=== PATIENT | female | born 1980 | race Caucasian/White ===

== ENCOUNTER 2018-12-18 17:28 | Observation (INO) | payer BC ==
[2018-12-18] MEDS ORDERED: SODIUM CHLORIDE 1,000 ML IV STA (17:34)
[2018-12-18] MEDS ORDERED: MECLIZINE HCL 25 MG TABLET (FP) PO ONE (17:34)
[2018-12-18] MEDS ORDERED: ONDANSETRON 4 MG/2 ML VIAL IVPUSH ONE (17:34)
--- NOTE | 2018-12-18 17:34 | PDOC ---
Rapid Medical Evaluation Time Seen by Provider: 12/18/18 17:31 Medical Evaluation: Allergies Allergy/AdvReac Type Severity Reaction Status Date / Time No Known Allergies Allergy Verified 07/06/11 16:38 12/18/18 17:32 I have performed a brief in-person evaluation of this patient. The patient presents with a chief complaint of: dizziness since awakening , feels as if room is spinning, no visual changes, no headache, vomited x 1, no vertigo hx Pertinent physical exam findings: cony raines, I have ordered the following: labs, ivf, urine, head ct, zofran, ivf and meclizine The patient will proceed to the ED for further evaluation. Discharge Disposition - Diagnosis Dizziness - Discharge Dispostion Disposition: HOME Condition at time of disposition: Stable - Referrals - Patient Instructions - Post Discharge Activity
--- NOTE | 2018-12-18 17:49 | PDOC ---
History of Present Illness - General Chief Complaint: Lightheaded Stated Complaint: DIZZY/VOMITTING Time Seen by Provider: 12/18/18 17:31 - History of Present Illness Initial Comments: Ms. Marshall is a 38 y/o female with no significant PMH presenting with headache that started around 8am this morning followed by dizziness, vertigo, loss of balance that started around 10am. Reports that her took her home from work. She vomited x2 at home. In the evening she began feeling lethargic, slurred speech, expressive aphasia, dysarthria, and shaking of the lower extremities. Also reports double vision. Reports that she has had similar symptoms 1 year ago, and saw an mobility scooter repairer and a neurologist, who said her findings were negative. Reports that today's symptoms are similar. NIH Stroke Scale - Last Known Well Date/Time & Onset Date Last Known Well: 12/17/18 Time Last Known Well: 23:00 - Initial Evaluation Level of consciousness: Alert Ask patient the month and their age: Answers both correctly Ask patient to open & close eyes; make fist and let go: Obeys both correctly Best gaze (horizontal eye movement): Normal Visual field testing: No visual field loss Facial paresis (Show teeth/raise eyebrows/close eyes tight): Normal symmetrical movement Motor Function: Left Arm: Normal Motor Function: Right Arm: Normal (extends arm 90 (or 45) degrees for 10 seconds without drift Motor Function: Left Leg: Drift Motor Function: Right Leg: Drift Limb Ataxia: Present in two limbs Sensory(Use pinprick test arms,legs,trunk,face/side to side): Normal Best language (Describe picture, name items, read sentences): Mild to moderate aphasia Dysarthria (read several words): Mild to moderate slurring of words Extinction and Inattention: No abnormality - Total Score NIH Stroke Scale Score: 6 Past History - Past Medical History Allergies/Adverse Reactions: Allergies Allergy/AdvReac Type Severity Reaction Status Date / Time No Known Allergies Allergy Verified 12/18/18 17:34 Home Medications: Ambulatory Orders Meclizine HCl [Antivert -] 25 mg PO TID PRN #12 tablet 12/19/18 Walker [Ultra-Light Rollator] 1 each ASDIR #1 each 12/19/18 Asthma: No Cancer: No Cardiac Disorders: No COPD: No Diabetes: No HTN: No Seizures: No Thyroid Disease: No - Psycho Social/Smoking Cessation Hx Smoking History: Never smoked Have you smoked in the past 12 months: No Information on smoking cessation initiated: No Hx Alcohol Use: No Drug/Substance Use Hx: No Hx Substance Use Treatment: No Review of Systems - Review of Systems Comments:: GENERAL/CONSTITUTIONAL: No fever or chills. Reports lethargy. HEAD, EYES, EARS, NOSE AND THROAT: Reports double vision. No change in hearing. No sore throat._ CARDIOVASCULAR: No chest pain or shortness of breath_ RESPIRATORY: Denies cough, hemoptysis_ GASTROINTESTINAL: Reports nausea and vomiting. No diarrhea or constipation._ GENITOURINARY: No dysuria, frequency, or change in urination._ MUSCULOSKELETAL: No joint or muscle swelling or pain. No neck or back pain._ SKIN: No rash_ NEUROLOGIC: Reports headache, dizziness, vertigo. Reports loss of balance. Reports dysarthria and expressive aphasia. ENDOCRINE: No increased thirst. No abnormal weight change_ HEMATOLOGIC/LYMPHATIC: No anemia, easy bleeding, or history of blood clots._ ALLERGIC/IMMUNOLOGIC: No hives or skin allergy._ *Physical Exam - Vital Signs Last Vital Signs Temp Pulse Resp BP Pulse Ox 98.4 F 80 19 135/68 98 12/18/18 17:32 12/18/18 17:32 12/18/18 17:32 12/18/18 17:32 12/18/18 17:32 - Physical Exam Comments: GENERAL: Awake, alert, and oriented to person/place/time, in no acute distress. Lethargic. HEAD: No signs of trauma, normocephalic, atraumatic _ EYES: PERRLA, EOMI, sclera anicteric, conjunctiva clear. Mild horizontal nystagmus without vertical nystagmus on lateral gaze. ENT: Hearing grossly normal, nares patent, oropharynx clear without exudates. No uvular deviation. Moist mucosa_ NECK: Normal ROM, supple, no lymphadenopathy, JVD, or masses_ LUNGS: No distress, speaks in full sentences, clear to auscultation bilaterally _ HEART: Regular rate and rhythm, normal S1 and S2, no murmurs appreciated, peripheral pulses normal and equal bilaterally._ ABDOMEN: Soft, nontender, normoactive bowel sounds. No guarding, no rebound. No masses_ EXTREMITIES: Normal inspection, Normal range of motion, no edema. No clubbing or cyanosis_ NEUROLOGICAL: CN II-XII tested and intact. Sensation intact to sharp/dull differentiation in all extremities and on face and torso. Motor: Normal tone and bulk. No abnormal movements appreciated. No pronator drift. Strength tested and 4/5 in bilateral wrist flexion/extension, elbow flexion/extension, shoulder abduction, straight leg raise, knee flexion/ extension, ankle dorsiflexion/plantarflexion. Patient ambulates with a wobbly gait. Romberg's test positive. Coordination: Intention tremor on bilateral upper extremities during finger to nose. Heal to mejia shows some effort and shaking bilaterally but otherwise intact. Speech: Expressive aphasia. Dysarthria. Emmanuel-Hallpike negative, but vertigo worse when sitting up. SKIN: Warm, Dry, normal turgor, no rashes or lesions noted. ED Treatment Course - LABORATORY CBC & Chemistry Diagram: 12/19/18 06:00 12/19/18 06:00 Medical Decision Making - Medical Decision Making 38F with no significant PMH presenting with headache, dizziness, vertigo, loss of balance, nausea/vomiting, double vision. Reports that she had similar symptoms 1 year ago and was worked up without any findings. -cbc, cmp -ua, uc, upreg -ct head -meclizine, reglan -IV fluids, IV tylenol 12/18/18 18:30 CT head negative, no signs of acute intracranial hemorrhage, no mass effect, no acute intracranial pathology. EKG shows 77 bpm, NSR, no ST elevation/depression, no axis deviation, QTc 425. 1845 Labs reviewed and wnl. UA does not show signs of UTI. Neuro consult placed to Dr. Cardona. 12/18/18 19:16 Pt reassessed after meds. Speech has improved. Shaking and tremors of extremities has improved. Reports that she continues to have dizziness. 12/18/18 19:52 D/w Dr. Cardona, who agrees with admission to r/o stroke. -MRI brain w/o contrast 12/18/18 20:55 D/w hospitalist who accepts the patient for admission. Discharge - Discharge Information Problems reviewed: Yes Clinical Impression/Diagnosis: Dizziness Condition: Stable Disposition: HOME - Follow up/Referral - Patient Discharge Instructions - Post Discharge Activity
[2018-12-18] MEDS ORDERED: MECLIZINE HCL 25 MG TABLET (FP) ONE (18:11)
[2018-12-18 18:12] LABS: PH,URINE 8.5 (5.0-8.0); URINE APPEARANCE TURBID; URINE BILIRUBIN NEGATIVE (NEGATIVE); URINE COLOR YELLOW; URINE GLUCOSE (UA) NEGATIVE (NEGATIVE); URINE KETONE NEGATIVE (NEGATIVE); URINE LEUK ESTERASE NEGATIVE (NEGATIVE); URINE NITRITE NEGATIVE (NEGATIVE); URINE PROTEIN NEGATIVE (NEGATIVE); URINE UROBILINOGEN 0.2 mg/dL (0.2-1.0)
[2018-12-18] MEDS ORDERED: ONDANSETRON 4 MG/2 ML VIAL ONE (18:12)
[2018-12-18] MEDS ORDERED: ACETAMINOPHEN 1000 MG/100 ML VIAL (NON FORMULARY) IVPB ONE (18:45)
[2018-12-18] MEDS ORDERED: METOCLOPRAMIDE HCL INJECTION 10 MG/2 ML VIAL IVPUSH ONE (18:45)
[2018-12-18 18:46] LABS: BASO % 0.9 % (0-2.0); EOS % 2.2 % (0-4.5); HEMATOCRIT 40.8 % (32.4-45.2); HEMOGLOBIN 13.8 GM/dL (10.7-15.3); LYMPH % 26.2 % (8-40); MCH 30.8 pg (25.7-33.7); MCHC 33.8 g/dl (32.0-36.0); MEAN CELL VOLUME 91.3 fl (80-96); MEAN PLT VOLUME 9.4 fl (7.5-11.1); MONO % 6.7 % (3.8-10.2); PLATELET COUNT 219 K/MM3 (134-434); RBC 4.47 M/mm3 (3.60-5.2); RDW 12.5 % (11.6-15.6); WHITE BLOOD COUNT 8.2 K/mm3 (4.0-10.0)
--- NOTE | 2018-12-18 18:51 | PDOC ---
Attending Attestation - Resident Resident Name: JonoQuinten - ED Attending Attestation I have performed the following: I have examined & evaluated the patient, The case was reviewed & discussed with the resident, I agree w/resident's findings & plan, Exceptions are as noted - HPI HPI: 12/18/18 18:45 38 F with no PMH presents to ED with double vision and dizziness. Pt states that she awoke this morning feeling like the room is spinning. She subsequently began to see double. Pt's at bedside also notes that she is slurring her words. Pt also confirms that her speech is different. Pt denies any weakness /numbness in any extremity. She endorses a R sided headache. Denies N/V. Denies F/C. Pt reports episodes of dizziness in the past. Has not been diagnosed with vertigo. - Physicial Exam PE: 12/18/18 18:51 GENERAL: Awake, alert, and fully oriented, in no acute distress. HEAD: No signs of trauma EYES: PERRLA, EOMI, sclera anicteric, conjunctiva clear ENT: Auricles normal inspection, hearing grossly normal, nares patent, oropharynx clear without exudates. Moist mucosa NECK: Nontender, no stepoffs, Normal ROM, supple, no lymphadenopathy, JVD, or masses LUNGS: Breath sounds equal, clear to auscultation bilaterally. No wheezes, and no crackles HEART: Regular rate and rhythm, normal S1 and S2, no murmurs, rubs or gallops ABDOMEN: Soft, nontender, normoactive bowel sounds. No guarding, no rebound. No masses EXTREMITIES: Normal range of motion, no edema. No clubbing or cyanosis. No cords, erythema, or tenderness NEUROLOGICAL: + horizontal bidirectional nystagmus, + dysarthria, Cranial nerves II through XII intact. 5/5 strength and sensation in all extremities, Normal speech, + mild ataxia SKIN: Warm, Dry, normal turgor, no rashes or lesions noted. - Critical Care Time Total Critical Care Time: 60 Critical Care Statement: The care of this patient involved high complexity decision making to prevent further life threatening deterioration of the patient 's condition and/or to evaluate & treat vital organ system(s) failure or risk of failure. - Medical Decision Making 12/18/18 18:52 38 F with vertigo, headache, dysarthria. ?Atypical migraine. Low suspicion for CVA, as pt with no risk factors. However, will obtain brain imaging given neuro deficits. Possible peripheral vertigo, but this would not explain pt's dysarthria. - Labs - CT head - Neuro consult - Meclizine - IVF, tylenol, reglan for migraine
[2018-12-18] MEDS ORDERED: METOCLOPRAMIDE HCL INJECTION 10 MG/2 ML VIAL ONE (18:56)
[2018-12-18] MEDS ORDERED: ACETAMINOPHEN INJECTION 100 ML IVPB ONE (18:56)
[2018-12-18 19:14] LABS: ALBUMIN 3.7 g/dl (3.4-5.0); BILIRUBIN,TOTAL 0.2 mg/dL (0.2-1); BLOOD UREA NITROGEN 7.6 mg/dL (7-18); CREATININE 0.6 mg/dL (0.55-1.3); POTASSIUM 3.9 mmol/L (3.5-5.1); TOT PROT 6.9 g/dl (6.4-8.2)
--- NOTE | 2018-12-19 00:20 | HP ---
CHIEF COMPLAINT: vertigo and dysarthria and slurred speech PCP: none HISTORY OF PRESENT ILLNESS: 38 year female with no past medical history presenting to the ED with the chief complaint of vertigo and horizontal diplopia. This morning pt felt the room spinning when she sat up on her bed and experienced double vision. She also felt nauseous in the morning and had 2 episodes of NBNB vomiting. When she went to work, her co-workers noticed that her balance and speech was slurred and that she was "tipping over" when walking. Pt describes that she was able to comprehend when spoken to but had difficulty with word finding, slurred speech and was unable to respond with coherent words. Her vertigo continued intermittently throughout the day and was provoked by changes in position. Pt reports a pressure like pain in her right sandra-orbital region. She also endorses feeling clogging in her ears but denies any tinnitus or hearing loss. Pt has one cup of coffee in the morning without any breakfast and drinks about 16 ounces of water daily. Denies fevers, chills, palpitations, chest pain, changes in medications, appetite and oral intake. Pt denies any history of migraines, flu-like symptoms, neck pain, photophobia or sonophobia, head trauma , focal neurological deficits, changes in bowel movement or urination. Pt had a similar episode September 2017. She was worked up by an color corrector and neurologist at this time with no specific findings (negative MRI). Pt reports putting pressure on her head with her hands against the wall temporarily alleviated her vertigo. Her diplopia and vertigo resolved on its own after one month duration at that time. ER course was notable for: (1) unremarkable CBC and CMP, EKG NSR, UA neg (2) Head CT negative. MRI pending report (3) meclizine, reglan,tylenol, NS. Neuro Dr Cardona consulted: rec MRI of brain w/o contrast Recent Travel:none PAST MEDICAL HISTORY: none PAST SURGICAL HISTORY: none Social History: Smoking:denies Alcohol:denies Drugs: denies Allergies No Known Allergies Allergy (Verified 12/18/18 17:34) HOME MEDICATIONS: Home Medications Medication Instructions Recorded Pnv Comb.no58/Iron Bisgly/FA 1 each PO DAILY #1 07/08/11 [ Capsule] REVIEW OF SYSTEMS CONSTITUTIONAL: Absent: fever, chills, diaphoresis, generalized weakness, malaise, loss of appetite, weight change HEENT: Absent: rhinorrhea, nasal congestion, throat pain, throat swelling, difficulty swallowing, mouth swelling, ear pain, eye pain, visual changes CARDIOVASCULAR: Absent: chest pain, syncope, palpitations, irregular heart rate, lightheadedness , peripheral edema RESPIRATORY: Absent: cough, shortness of breath, dyspnea with exertion, orthopnea, wheezing, stridor, hemoptysis GASTROINTESTINAL: Absent: abdominal pain, abdominal distension, nausea, vomiting, diarrhea, constipation, melena, hematochezia GENITOURINARY: Absent: dysuria, frequency, urgency, hesitancy, hematuria, flank pain, genital pain MUSCULOSKELETAL: Absent: myalgia, arthralgia, joint swelling, back pain, neck pain SKIN: Absent: rash, itching, pallor HEMATOLOGIC/IMMUNOLOGIC: Absent: easy bleeding, easy bruising, lymphadenopathy, frequent infections ENDOCRINE: Absent: unexplained weight gain, unexplained weight loss, heat intolerance, cold intolerance NEUROLOGIC: dizziness, unsteady gait Absent: headache, focal weakness or paresthesias, seizure, mental status changes , bladder or bowel incontinence PSYCHIATRIC: Absent: anxiety, depression, suicidal or homicidal ideation, hallucinations. PHYSICAL EXAMINATION Vital Signs - 24 hr 12/18/18 12/18/18 17:32 23:00 Temperature 98.4 F 97.9 F Pulse Rate 80 Pulse Rate [ 62 Right Radial] Respiratory 19 18 Rate Blood Pressure 135/68 Blood Pressure 131/76 [Left Arm] O2 Sat by Pulse 98 99 Oximetry (%) GENERAL: Awake, alert, and fully oriented, in mild distress. HEAD: Normal with no signs of trauma. EYES: Pupils equal, round and reactive to light, diplopia, extraocular movements intact , sclera anicteric, conjunctiva clear. No lid lag. EARS, NOSE, THROAT: oropharynx clear without exudates. Moist mucous membranes. NECK: Normal range of motion, supple without lymphadenopathy, JVD, or masses. LUNGS: Breath sounds equal, clear to auscultation bilaterally. No wheezes, and no crackles. No accessory muscle use. HEART: Regular rate and rhythm, normal S1 and S2 without murmur, rub or gallop. ABDOMEN: Soft, nontender, not distended, normoactive bowel sounds, no guarding, no rebound, no masses. No hepatomegaly or splenomegaly. MUSCULOSKELETAL: Normal range of motion at all joints. No bony deformities or tenderness. No CVA tenderness. UPPER EXTREMITIES: 2+ pulses, warm, well-perfused. No cyanosis. No clubbing. No peripheral edema. LOWER EXTREMITIES: 2+ pulses, warm, well-perfused. No calf tenderness. No peripheral edema. NEUROLOGICAL: Cranial nerves II-XII intact. Normal speech. unsteady gait. positive romberg. motor strength 5/5 in all muscle groups and sensation intact. relexes present in upper and lower extremities PSYCHIATRIC: Cooperative. Good eye contact. Appropriate mood and affect. SKIN: Warm, dry, normal turgor, no rashes or lesions noted, normal capillary refill. Laboratory Results - last 24 hr 12/18/18 12/18/18 12/18/18 17:47 17:47 18:30 WBC 8.2 RBC 4.47 Hgb 13.8 Hct 40.8 MCV 91.3 MCH 30.8 MCHC 33.8 RDW 12.5 Plt Count 219 D MPV 9.4 Absolute Neuts (auto) 5.3 Neutrophils % 64.0 Lymphocytes % 26.2 Monocytes % 6.7 Eosinophils % 2.2 Basophils % 0.9 Nucleated RBC % 0 Sodium Potassium Chloride Carbon Dioxide Anion Gap BUN Creatinine Est GFR (CKD-EPI)AfAm Est GFR (CKD-EPI)NonAf Random Glucose Calcium Total Bilirubin AST ALT Alkaline Phosphatase Total Protein Albumin Urine Color Yellow Urine Appearance Turbid Urine pH 8.5 H D Ur Specific Apollo 1.014 Urine Protein Negative Urine Glucose (UA) Negative Urine Ketones Negative Urine Blood Negative Urine Nitrite Negative Urine Bilirubin Negative Urine Urobilinogen 0.2 Ur Leukocyte Esterase Negative Urine HCG, Qual Negative 12/18/18 18:30 WBC RBC Hgb Hct MCV MCH MCHC RDW Plt Count MPV Absolute Neuts (auto) Neutrophils % Lymphocytes % Monocytes % Eosinophils % Basophils % Nucleated RBC % Sodium 139 Potassium 3.9 Chloride 106 Carbon Dioxide 27 Anion Gap 5 L BUN 7.6 Creatinine 0.6 Est GFR (CKD-EPI)AfAm 132.14 Est GFR (CKD-EPI)NonAf 114.01 Random Glucose 102 Calcium 9.0 Total Bilirubin 0.2 AST 10 L ALT 20 Alkaline Phosphatase 70 Total Protein 6.9 Albumin 3.7 Urine Color Urine Appearance Urine pH Ur Specific Apollo Urine Protein Urine Glucose (UA) Urine Ketones Urine Blood Urine Nitrite Urine Bilirubin Urine Urobilinogen Ur Leukocyte Esterase Urine HCG, Qual ASSESSMENT/PLAN: 38 year female with no past medical history presenting to the ED with the chief complaint of vertigo, horizontal diplopia, dysarthria and expressive aphasia admitted to r/o TIA Dysarthria, expressive aphasia on admission but now resolved. r/o TIA. persistent and severe vertigo Admitted to tele peripheral vertigo from BPPV? vestibulopathy ? Vestibular migraines? vs central vertigo from stoke? MS? Head CT negative MRI w/o contrast prelim report showed mucous retention cyst or polyp but otherwise unremarkable carotid U/S echocardiogram pt's has no significant PMH of HTN, Diabetes or HLD. No PCP lipid profile HbA1C ordered Though her dysarthria and expressive aphasia resolved prior to our encounter. NPO for now until speech and swallow eval keep HOB elevated at [address] Cardona consulted neuro checks fall precautions DVT SCDs Visit type - Emergency Visit Emergency Visit: Yes ED Registration Date: 12/19/18 Care time: The patient presented to the Emergency Department on the above date and was hospitalized for further evaluation of their emergent condition. - New Patient This patient is new to me today: Yes Date on this admission: 12/19/18 - Critical Care Critical Care patient: No ATTENDING PHYSICIAN STATEMENT I saw and evaluated the patient. I reviewed the resident's note and discussed the case with the resident. I agree with the resident's findings and plan as documented. SUBJECTIVE: OBJECTIVE: ASSESSMENT AND PLAN:
--- NOTE | 2018-12-19 00:50 | PN ---
Teaching Attending Note Name of Resident: Cass Pablo ATTENDING PHYSICIAN STATEMENT I saw and evaluated the patient. I reviewed the resident's note and discussed the case with the resident. I agree with the resident's findings and plan as documented. SUBJECTIVE: 38 y/o female with no significant PMH presented With a Unilateral, sharpheadache which started around 8 AM on 12/18 followed by dizziness, vertigo , loss of balance nonbloody vomiting x2. Patient also complained of some double vision. Denied any trauma to head, first time this incident has happened. Now it is much improved. OBJECTIVE: Last Vital Signs Temp Pulse Resp BP Pulse Ox 97.9 F 62 18 131/76 99 12/18/18 23:00 12/18/18 23:00 12/18/18 23:00 12/18/18 23:00 12/18/18 23:00 GENERAL: Well developed, well nourished. Awake and alert. No acute distress. HEENT: Normocephalic, atraumatic. PERRLA, EOMI. No conjunctival pallor. Sclera are non- icteric. Moist mucous membranes. Oropharynx is clear. NECK: Supple. Full ROM. No JVD. Carotid pulses 2+ and symmetric, without bruits. No thyromegaly. No lymphadenopathy. CARDIOVASCULAR: Regular rate and rhythm. No murmurs, rubs, or gallops. Distal pulses are 2+ and symmetric. PULMONARY: No evidence of respiratory distress. Lungs clear to auscultation bilaterally. No wheezing, rales or rhonchi. ABDOMINAL: Soft. Non-tender. Non-distended. No rebound or guarding. No organomegaly. Normoactive bowel sounds. MUSCULOSKELETAL Normal range of motion at all joints. No bony deformities or tenderness. No CVA tenderness. EXTREMITIES: No cyanosis. No clubbing. No edema. No calf tenderness. SKIN: Warm and dry. Normal capillary refill. No rashes. No jaundice. NEUROLOGICAL: Alert, awake, appropriate. Cranial nerves 2-12 intact. No deficits to light touch and temperature in face, upper extremities and lower extremities. No motor deficits in the in face, upper extremities and lower extremities. Normoreflexic in the upper and lower extremities. Normal speech. Toes are down- going bilaterally. Gait is normal without ataxia. PSYCHIATRIC: Cooperative. Good eye contact. Appropriate mood and affect. Abnormal Lab Results 12/18/18 12/18/18 17:47 18:30 Anion Gap 5 L AST 10 L Urine pH 8.5 H D ASSESSMENT AND PLAN: Severe headache along with nausea and vomiting worrisome for acute intracranial event. First head CT was unremarkable for any acute process.Should admit for TIA Admit to telemetry N.p.o. Speech and swallow evaluation Cardiac monitoring Neuro checks every 4 hours Neurology consult Brain MRI Bilateral carotid duplex Echo DVT prophylaxis
[2018-12-19 06:09] VITALS: BMI 36.7
[2018-12-19 07:07] LABS: EOS % 4.2 % (0-4.5); HEMATOCRIT 36.1 % (32.4-45.2); HEMOGLOBIN 12.5 GM/dL (10.7-15.3); LYMPH % 37.7 % (8-40); MCH 31.6 pg (25.7-33.7); MCHC 34.7 g/dl (32.0-36.0); MEAN CELL VOLUME 90.9 fl (80-96); MEAN PLT VOLUME 9.2 fl (7.5-11.1); MONO % 7.9 % (3.8-10.2); NEUT % 49.2 % (42.8-82.8); PLATELET COUNT 207 K/MM3 (134-434); RBC 3.97 M/mm3 (3.60-5.2); RDW 12.7 % (11.6-15.6); WHITE BLOOD COUNT 6.1 K/mm3 (4.0-10.0)
[2018-12-19 08:05] LABS: ALBUMIN 3.2 g/dl (3.4-5.0); BILIRUBIN,TOTAL 0.5 mg/dL (0.2-1); BLOOD UREA NITROGEN 7.5 mg/dL (7-18); CALCIUM 8.2 mg/dL (8.5-10.1); CREATININE 0.5 mg/dL (0.55-1.3); PHOSPHOROUS 3.7 mg/dL (2.5-4.9); POTASSIUM 3.6 mmol/L (3.5-5.1); TOT PROT 6.2 g/dl (6.4-8.2)
--- NOTE | 2018-12-19 09:27 | CONSULT ---
Consult - text type - Consultation Consultation Note: Neurology CHIEF COMPLAINT: vertigo and dysarthria and slurred speech PCP: none HISTORY OF PRESENT ILLNESS: 38 year female with no past medical history presented to the ED with the chief complaint of vertigo and horizontal diplopia. The morning of admission, pt felt the room spinning when she sat up on her bed and experienced double vision. She also felt nauseous in the morning and had 2 episodes of NBNB vomiting. When she went to work, her co-workers noticed that her balance and speech was slurred and that she was "tipping over" when walking. Pt describes that she was able to comprehend when spoken to but had difficulty with word finding, slurred speech and was unable to respond with coherent words. Her vertigo continued intermittently throughout the day and was provoked by changes in position. Pt reports a pressure like pain in her right sandra-orbital region. She also endorses feeling clogging in her ears but denies any tinnitus or hearing loss. Pt has one cup of coffee in the morning without any breakfast and drinks about 16 ounces of water daily. Denies fevers, chills, palpitations, chest pain, changes in medications, appetite and oral intake. Pt denies any history of migraines, flu-like symptoms, neck pain, photophobia or sonophobia, head trauma , focal neurological deficits, changes in bowel movement or urination. Pt had a similar episode September 2017. She was worked up by an supervisor dumping and neurologist at this time with no specific findings (negative MRI). Pt reports putting pressure on her head with her hands against the wall temporarily alleviated her vertigo. Her diplopia and vertigo resolved on its own after one month duration at that time. I was contacted by the emergency department regarding the case. nnoncontrast head CT did not show any acute changes. Given her symptoms and possible posterior circulation lesion, advised to have MRI of the brain completed. This was completed overnight and demonstrated no significant structural abnormalities. This morning, patient reports symptoms are significantly better and was having echo completed during my visit. She denies having any focal deficits and neurologically appears to be at baseline. Recent Travel:none PAST MEDICAL HISTORY: none PAST SURGICAL HISTORY: none Social History: Smoking:denies Alcohol:denies Drugs: denies Family: HTN Allergies No Known Allergies Allergy (Verified 12/18/18 17:34) HOME MEDICATIONS: Home Medications Medication Instructions Recorded Pnv Comb.no58/Iron Bisgly/FA 1 each PO DAILY #1 07/08/11 [ Capsule] REVIEW OF SYSTEMS CONSTITUTIONAL: Absent: fever, chills, diaphoresis, generalized weakness, malaise, loss of appetite, weight change HEENT: Absent: rhinorrhea, nasal congestion, throat pain, throat swelling, difficulty swallowing, mouth swelling, ear pain, eye pain, visual changes CARDIOVASCULAR: Absent: chest pain, syncope, palpitations, irregular heart rate, lightheadedness , peripheral edema RESPIRATORY: Absent: cough, shortness of breath, dyspnea with exertion, orthopnea, wheezing, stridor, hemoptysis GASTROINTESTINAL: Absent: abdominal pain, abdominal distension, nausea, vomiting, diarrhea, constipation, melena, hematochezia GENITOURINARY: Absent: dysuria, frequency, urgency, hesitancy, hematuria, flank pain, genital pain MUSCULOSKELETAL: Absent: myalgia, arthralgia, joint swelling, back pain, neck pain SKIN: Absent: rash, itching, pallor HEMATOLOGIC/IMMUNOLOGIC: Absent: easy bleeding, easy bruising, lymphadenopathy, frequent infections ENDOCRINE: Absent: unexplained weight gain, unexplained weight loss, heat intolerance, cold intolerance NEUROLOGIC: dizziness, unsteady gait Absent: headache, focal weakness or paresthesias, seizure, mental status changes , bladder or bowel incontinence PSYCHIATRIC: Absent: anxiety, depression, suicidal or homicidal ideation, hallucinations. PHYSICAL EXAMINATION Vital Signs Period Temp Pulse Resp BP Sys/Sy Pulse Ox Last 24 Hr 97.9 F-98.4 F 60-80 16-19 116-135/68-80 98-99 GENERAL: Awake, alert, and fully oriented, in mild distress. HEAD: Normal with no signs of trauma. EYES: Pupils equal, round and reactive to light, diplopia, extraocular movements intact , sclera anicteric, conjunctiva clear. No lid lag. EARS, NOSE, THROAT: oropharynx clear without exudates. Moist mucous membranes. NECK: Normal range of motion, supple without lymphadenopathy, JVD, or masses. LUNGS: Breath sounds equal, clear to auscultation bilaterally. No wheezes, and no crackles. No accessory muscle use. HEART: Regular rate and rhythm, normal S1 and S2 without murmur, rub or gallop. ABDOMEN: Soft, nontender, not distended, normoactive bowel sounds, no guarding, no rebound, no masses. No hepatomegaly or splenomegaly. MUSCULOSKELETAL: Normal range of motion at all joints. No bony deformities or tenderness. No CVA tenderness. UPPER EXTREMITIES: 2+ pulses, warm, well-perfused. No cyanosis. No clubbing. No peripheral edema. LOWER EXTREMITIES: 2+ pulses, warm, well-perfused. No calf tenderness. No peripheral edema. NEUROLOGICAL: Cranial nerves II-XII intact. Normal speech. motor strength 5/5 in all muscle groups and sensation intact. reflexes present in upper and lower extremities, sensory intact PSYCHIATRIC: Cooperative. Good eye contact. Appropriate mood and affect. SKIN: Warm, dry, normal turgor, no rashes or lesions noted, normal capillary refill. Laboratory Results - last 24 hr 12/18/18 12/18/18 12/18/18 17:47 17:47 18:30 WBC 8.2 RBC 4.47 Hgb 13.8 Hct 40.8 MCV 91.3 MCH 30.8 MCHC 33.8 RDW 12.5 Plt Count 219 D MPV 9.4 Absolute Neuts (auto) 5.3 Neutrophils % 64.0 Lymphocytes % 26.2 Monocytes % 6.7 Eosinophils % 2.2 Basophils % 0.9 Nucleated RBC % 0 Sodium Potassium Chloride Carbon Dioxide Anion Gap BUN Creatinine Est GFR (CKD-EPI)AfAm Est GFR (CKD-EPI)NonAf Random Glucose Calcium Total Bilirubin AST ALT Alkaline Phosphatase Total Protein Albumin Urine Color Yellow Urine Appearance Turbid Urine pH 8.5 H D Ur Specific [place] 1.014 Urine Protein Negative Urine Glucose (UA) Negative Urine Ketones Negative Urine Blood Negative Urine Nitrite Negative Urine Bilirubin Negative Urine Urobilinogen 0.2 Ur Leukocyte Esterase Negative Urine HCG, Qual Negative 12/18/18 18:30 WBC RBC Hgb Hct MCV MCH MCHC RDW Plt Count MPV Absolute Neuts (auto) Neutrophils % Lymphocytes % Monocytes % Eosinophils % Basophils % Nucleated RBC % Sodium 139 Potassium 3.9 Chloride 106 Carbon Dioxide 27 Anion Gap 5 L BUN 7.6 Creatinine 0.6 Est GFR (CKD-EPI)AfAm 132.14 Est GFR (CKD-EPI)NonAf 114.01 Random Glucose 102 Calcium 9.0 Total Bilirubin 0.2 AST 10 L ALT 20 Alkaline Phosphatase 70 Total Protein 6.9 Albumin 3.7 Urine Color Urine Appearance Urine pH Ur Specific [place] Urine Protein Urine Glucose (UA) Urine Ketones Urine Blood Urine Nitrite Urine Bilirubin Urine Urobilinogen Ur Leukocyte Esterase Urine HCG, Qual ASSESSMENT/PLAN: 38 year female with no past medical history presented to the ED with the chief complaint of vertigo and horizontal diplopia. The morning of admission, pt felt the room spinning when she sat up on her bed and experienced double vision. She also felt nauseous in the morning and had 2 episodes of NBNB vomiting. When she went to work, her co-workers noticed that her balance and speech was slurred and that she was "tipping over" when walking. Pt describes that she was able to comprehend when spoken to but had difficulty with word finding, slurred speech and was unable to respond with coherent words. Her vertigo continued intermittently throughout the day and was provoked by changes in position. Pt reports a pressure like pain in her right sandra-orbital region. She also endorses feeling clogging in her ears but denies any tinnitus or hearing loss. Pt has one cup of coffee in the morning without any breakfast and drinks about 16 ounces of water daily. Denies fevers, chills, palpitations, chest pain, changes in medications, appetite and oral intake. Pt denies any history of migraines, flu-like symptoms, neck pain, photophobia or sonophobia, head trauma , focal neurological deficits, changes in bowel movement or urination. Pt had a similar episode September 2017. She was worked up by an supervisor dumping and neurologist at this time with no specific findings (negative MRI). Pt reports putting pressure on her head with her hands against the wall temporarily alleviated her vertigo. Her diplopia and vertigo resolved on its own after one month duration at that time. I was contacted by the emergency department regarding the case. nnoncontrast head CT did not show any acute changes. Given her symptoms and possible posterior circulation lesion, advised to have MRI of the brain completed. This was completed overnight and demonstrated no significant structural abnormalities and was within normal limits. This morning, patient reports symptoms are significantly better and was having echo completed during my visit. She denies having any focal deficits and neurologically appears to be at baseline. Follow-up reports of echo, carotid Dopplers. adequate hydration recommended, consider meclizineas needed for outpatient management. Jon maneuvers may be of benefit.
--- NOTE | 2018-12-19 09:59 | CONSULT ---
Admitting History and Physical - Primary Care Physician PCP: Del Cavazos - Admission History of Present Illness: 38 y/o female with no significant PMH presented With sharp headache followed by dizziness, vertigo, loss of balance vomiting x2, double vision, difficulty initiating speech. Selected Entries 12/19/18 12/19/18 12/19/18 03:43 05:46 11:16 Breakfast NPO Temperature 98.2 F 98.2 F Laboratory Tests 12/19/18 06:00 WBC 6.1 History Source: Patient Limitations to Obtaining History: No Limitations - Past Medical History ...: No (urine HCG neg) - Past Surgical History Past Surgical History: Yes: None - Smoking History Smoking history: Never smoked Have you smoked in the past 12 months: No - Alcohol/Substance Use Hx Alcohol Use: No History of Substance Use: reports: None - Social History History of Recent Travel: No History - Admission Reason For Visit: DIZZINESS - Diagnostics X-ray: Report Reviewed CT Scan: Report Reviewed MRI: Report Reviewed - General Mental Status: Alert and Oriented, Awake and Alert, Able to Follow Commands Attention: Intact Ability to Follow Directions: Excellent Head/Neck Control: WFL - Hearing Hearing: Normal Hearing: Normal Speech Evaluation - Communication Primary Language: JORDANIAN Communication: Yes: Within Normal Limits Oral Expression Ability: Yes: No Impairment - Speech Production Able to Make Needs Known: Yes: WNL Intelligibility: Yes: WNL - Speech Characteristics Voice Loudness: Normal Voice Pitch: Yes: Normal Voice Phonatory-based Quality: Yes: Normal Speech Pattern: Normal Speech Clarity: < 100% Nasal Resonance: Normal Articulation: Yes: Precise Rate of Speech: Intact - Language/Auditory Comprehension Follows: Yes: 2 Stage Simple Commands Observation: Able to respond to yes/no queries: Yes, Yes/No Confusion: No, Comprehends Conversational Speech: Yes - Language/Verbal Expression Able to Respond to Simple Queries: Yes: WNL Able to Communicate Wants and Needs: Yes: WNL Functional Communication Status: Yes: WNL - Memory/Perception terminologist Memory: Yes: WNL Short Term Memory: Yes: WNL - Swallow Evaluation/Bedside Assessment Current Nutritional Intake: NPO Oral Secretions: Yes: WFL Dentition: Yes: Adequate Facial Symmetry at Rest: Symmetrical Facial Symmetry on Retraction: Symmetrical Facial Movement: Controlled Sensation: Normal Against Resistance Opening: Normal Against Resistance Closing: Normal Pucker Lips: Normal Smile: Normal Lingual Movement: Normal, Symmetric Lingual Speed of Movement: Normal Lingual Movement Strgth Against Opposition: Normal Lingual Movement Characteristics: Normal Velopharyngeal Movement: Normal Laryngeal Elevation: WFL Laryngeal Movement: Able to Palpate Rate of Intake: WFL Bolus Size: WFL Labial Seal: WFL Chewing: WFL Oral Prep Time: WFL A-P Transit: WFL Timing of Swallow: WFL Coughing/Throat Clear: No Change in Voice: No Recommendations - Speech Evaluation, Impression/Plan Impression: Speech, swallowing, language, cognition intact at this time. - Dysphagia Impressions/Plan Swallowing Skills: WF Dysphagia Impressions: No Impairment *Silent aspiration: cannot be R/O at bedside - Recommendations Diet Consistency: Regular Medication Administration: Whole with water Liquids: Thin Liquids
[2018-12-19] MEDS ORDERED: ACETAMINOPHEN 325 MG TABLET (FP) PO PRN (12:21)
--- NOTE | 2018-12-19 12:39 | EKG ---
Test Reason : Blood Pressure : / mmHG Vent. Rate : 077 BPM Atrial Rate : 077 BPM P-R Int : 150 ms QRS Dur : 086 ms QT Int : 376 ms P-R-T Axes : 037 050 030 degrees QTc Int : 425 ms NORMAL SINUS RHYTHM NORMAL ECG NO PREVIOUS ECGS AVAILABLE Confirmed by KENNEDY CARMICHAEL MD ([id number]) on 12/19/2018 12:39:32 PM Referred By: Confirmed By:KENNEDY CARMICHAEL MD
--- NOTE | 2018-12-19 12:50 | ECHO ---
Name: SANTIAGO CORDOVA Z Exam:Adult Echocardiogram Study Date: 12/19/2018 08:34 AM Age: 38 yrs Height: 59 in Weight: 182 lb BSA: 1.8 m2 MMode/2D Measurements & Calculations IVSd: 1.0 cm Ao root diam: 2.2 cm LVIDd: 3.4 cm LA dimension: 3.0 cm LVIDs: 2.3 cm LVPWd: 0.90 cm LVPWs: 1.2 cm EDV(Teich): 47.4 ml ESV(Teich): 18.1 ml LVOT diam: 1.7 cm Doppler Measurements & Calculations MV E max arnaldo: 88.8 cm/sec Ao V2 max: 137.1 cm/sec MV A max arnaldo: 70.6 cm/sec Ao max P.5 mmHg MV E/A: 1.3 MV dec time: 0.14 sec BERENICE(V,D): 1.6 cm2 LV V1 max P.9 mmHg TR max arnaldo: 222.3 cm/sec LV V1 max: 99.2 cm/sec TR max P.8 mmHg PA V2 max: 107.2 cm/sec Med Peak E' Arnaldo: 10.4 cm/sec PA max P.6 mmHg Med E/e': 8.5 Lat Peak E' Arnaldo: 11.4 cm/sec Lat E/e': 7.8 Procedure A complete two-dimensional transthoracic echocardiogram was performed (2D, M-mode, Doppler and color flow Doppler). Left Ventricle The left ventricular size, thickness and function are normal. The left ventricular ejection fraction is normal. Ejection Fraction = 55-60%. The left ventricular wall motion is normal. Right Ventricle The right ventricle is normal in size and function. Atria Normal left and right atrial size and function. Mitral Valve There is no mitral regurgitation noted. Tricuspid Valve There is mild tricuspid regurgitation. Right ventricular systolic pressure is normal. Aortic Valve No hemodynamically significant valvular aortic stenosis. No aortic regurgitation is present. Pulmonic Valve There is no pulmonic valvular regurgitation. Great Vessels The aortic root is normal size. Pericardium/Pleura There is no pericardial effusion. Interpretation Summary The left ventricular size, thickness and function are normal The right ventricle is normal in size and function. There is mild tricuspid regurgitation. MD Mark Hall 12/19/2018 12:50 PM
--- NOTE | 2018-12-19 14:32 | PN ---
Teaching Attending Note Name of Resident: Piyush Welsh ATTENDING PHYSICIAN STATEMENT I saw and evaluated the patient. I reviewed the resident's note and discussed the case with the resident. I agree with the resident's findings and plan as documented with exceptions below. SUBJECTIVE: Patient seen and examined, no further symptoms, no vision disturbances or dizziness currently. OBJECTIVE: Vital Signs Period Temp Pulse Resp BP Sys/Sy Pulse Ox Last 24 Hr 97.9 F-98.4 F 60-85 16-19 116-135/68-80 98-99 Intake & Output 12/16/18 12/17/18 12/18/18 12/19/18 23:59 23:59 23:59 23:59 Intake Total 1370 Balance 1370 Weight 185 lb 182 lb General: sitting in bed in no acute distress Neck: soft, supple HEENT: PERRL, EOMI, no nystagmus Chest: CTAB, no rales or wheezing Abdomen:soft, obese, NT neuro: AAOx3, power 5/5, sensation intact and symmetric to light touch, EOMI, PERRL, DTR symmetric, tongue midline, facial symmetry, no dysdiadokinesia Home Medications Medication Instructions Recorded Pnv Comb.no58/Iron Bisgly/FA 1 each PO DAILY #1 07/08/11 [ Capsule] Active Medications Acetaminophen (Tylenol -) 650 mg PO Q6H PRN PRN Reason: Fever Or Pain Laboratory Results - last 24 hr 12/18/18 12/18/18 12/18/18 17:47 17:47 18:30 WBC 8.2 RBC 4.47 Hgb 13.8 Hct 40.8 MCV 91.3 MCH 30.8 MCHC 33.8 RDW 12.5 Plt Count 219 D MPV 9.4 Absolute Neuts (auto) 5.3 Neutrophils % 64.0 Lymphocytes % 26.2 Monocytes % 6.7 Eosinophils % 2.2 Basophils % 0.9 Nucleated RBC % 0 Sodium Potassium Chloride Carbon Dioxide Anion Gap BUN Creatinine Est GFR (CKD-EPI)AfAm Est GFR (CKD-EPI)NonAf Random Glucose Hemoglobin A1c % Calcium Phosphorus Magnesium Total Bilirubin AST ALT Alkaline Phosphatase Total Protein Albumin Triglycerides Cholesterol Total LDL Cholesterol HDL Cholesterol Urine Color Yellow Urine Appearance Turbid Urine pH 8.5 H D Ur Specific [place] 1.014 Urine Protein Negative Urine Glucose (UA) Negative Urine Ketones Negative Urine Blood Negative Urine Nitrite Negative Urine Bilirubin Negative Urine Urobilinogen 0.2 Ur Leukocyte Esterase Negative Urine HCG, Qual Negative 12/18/18 12/19/18 12/19/18 18:30 06:00 06:00 WBC 6.1 RBC 3.97 Hgb 12.5 Hct 36.1 MCV 90.9 MCH 31.6 MCHC 34.7 RDW 12.7 Plt Count 207 MPV 9.2 Absolute Neuts (auto) 3.0 Neutrophils % 49.2 D Lymphocytes % 37.7 D Monocytes % 7.9 Eosinophils % 4.2 D Basophils % 1.0 Nucleated RBC % 0 Sodium 139 140 Potassium 3.9 3.6 Chloride 106 108 H Carbon Dioxide 27 27 Anion Gap 5 L 5 L BUN 7.6 7.5 Creatinine 0.6 0.5 L Est GFR (CKD-EPI)AfAm 132.14 140.31 Est GFR (CKD-EPI)NonAf 114.01 121.06 Random Glucose 102 89 Hemoglobin A1c % Calcium 9.0 8.2 L Phosphorus 3.7 Magnesium 2.0 Total Bilirubin 0.2 0.5 AST 10 L 12 L ALT 20 17 Alkaline Phosphatase 70 61 Total Protein 6.9 6.2 L Albumin 3.7 3.2 L Triglycerides 273 H Cholesterol 163 Total LDL Cholesterol 102 H HDL Cholesterol 34 L Urine Color Urine Appearance Urine pH Ur Specific [place] Urine Protein Urine Glucose (UA) Urine Ketones Urine Blood Urine Nitrite Urine Bilirubin Urine Urobilinogen Ur Leukocyte Esterase Urine HCG, Qual 12/19/18 06:00 WBC RBC Hgb Hct MCV MCH MCHC RDW Plt Count MPV Absolute Neuts (auto) Neutrophils % Lymphocytes % Monocytes % Eosinophils % Basophils % Nucleated RBC % Sodium Potassium Chloride Carbon Dioxide Anion Gap BUN Creatinine Est GFR (CKD-EPI)AfAm Est GFR (CKD-EPI)NonAf Random Glucose Hemoglobin A1c % 4.8 Calcium Phosphorus Magnesium Total Bilirubin AST ALT Alkaline Phosphatase Total Protein Albumin Triglycerides Cholesterol Total LDL Cholesterol HDL Cholesterol Urine Color Urine Appearance Urine pH Ur Specific [place] Urine Protein Urine Glucose (UA) Urine Ketones Urine Blood Urine Nitrite Urine Bilirubin Urine Urobilinogen Ur Leukocyte Esterase Urine HCG, Qual MRI brain results reviewed 2D echo noted ASSESSMENT AND PLAN: 38 yof with no significant PMHx admitted with diplopia/dizziness -Dizziness, suspect BPPV -Diploplia, resolved -Obesity -Dyslipidemia Plan: MRI/2Decho non concerning Symptoms resolved, neurological exam non focal Neurology input noted Await carotid duplex Dc home today if no concerns Discussed with patient and nursing.
--- NOTE | 2018-12-19 18:03 | DS ---
Physical Exam: SUBJECTIVE: Patient seen and examined OBJECTIVE: Vital Signs Period Temp Pulse Resp BP Sys/Sy Pulse Ox Last 24 Hr 97.9 F-98.2 F 60-85 16-18 116-132/69-80 98-99 PHYSICAL EXAM GENERAL: A&O x3. NAD. Large body habitus HEAD: NC/AT. No temporal wasting EYES: EOMI, sclera anicteric, conjunctiva clear. ENT: Ears normal, nares patent, oropharynx clear without exudates, moist mucous membranes. NECK: Trachea midline, full range of motion, supple. LUNGS: Breath sounds equal, clear to auscultation bilaterally, no wheezes, no crackles, no accessory muscle use. HEART: Regular rate and rhythm, S1, S2 without murmur, rub or gallop. ABDOMEN: Soft, nontender, nondistended, normoactive bowel sounds, no guarding, no rebound. EXTREMITIES: 2+ pulses, warm, well-perfused, no edema. NEUROLOGICAL: Cranial nerves II through XII grossly intact. NIHSS 0. Normal speech, gait not observed. PSYCH: Normal mood, normal affect. SKIN: Warm, dry, normal turgor, no rashes or lesions noted. LABS Laboratory Results - last 24 hr 12/18/18 12/18/18 12/18/18 17:47 17:47 18:30 WBC 8.2 RBC 4.47 Hgb 13.8 Hct 40.8 MCV 91.3 MCH 30.8 MCHC 33.8 RDW 12.5 Plt Count 219 D MPV 9.4 Absolute Neuts (auto) 5.3 Neutrophils % 64.0 Lymphocytes % 26.2 Monocytes % 6.7 Eosinophils % 2.2 Basophils % 0.9 Nucleated RBC % 0 Sodium Potassium Chloride Carbon Dioxide Anion Gap BUN Creatinine Est GFR (CKD-EPI)AfAm Est GFR (CKD-EPI)NonAf Random Glucose Hemoglobin A1c % Calcium Phosphorus Magnesium Total Bilirubin AST ALT Alkaline Phosphatase Total Protein Albumin Triglycerides Cholesterol Total LDL Cholesterol HDL Cholesterol Urine Color Yellow Urine Appearance Turbid Urine pH 8.5 H D Ur Specific [place] 1.014 Urine Protein Negative Urine Glucose (UA) Negative Urine Ketones Negative Urine Blood Negative Urine Nitrite Negative Urine Bilirubin Negative Urine Urobilinogen 0.2 Ur Leukocyte Esterase Negative Urine HCG, Qual Negative 12/18/18 12/19/18 12/19/18 18:30 06:00 06:00 WBC 6.1 RBC 3.97 Hgb 12.5 Hct 36.1 MCV 90.9 MCH 31.6 MCHC 34.7 RDW 12.7 Plt Count 207 MPV 9.2 Absolute Neuts (auto) 3.0 Neutrophils % 49.2 D Lymphocytes % 37.7 D Monocytes % 7.9 Eosinophils % 4.2 D Basophils % 1.0 Nucleated RBC % 0 Sodium 139 140 Potassium 3.9 3.6 Chloride 106 108 H Carbon Dioxide 27 27 Anion Gap 5 L 5 L BUN 7.6 7.5 Creatinine 0.6 0.5 L Est GFR (CKD-EPI)AfAm 132.14 140.31 Est GFR (CKD-EPI)NonAf 114.01 121.06 Random Glucose 102 89 Hemoglobin A1c % Calcium 9.0 8.2 L Phosphorus 3.7 Magnesium 2.0 Total Bilirubin 0.2 0.5 AST 10 L 12 L ALT 20 17 Alkaline Phosphatase 70 61 Total Protein 6.9 6.2 L Albumin 3.7 3.2 L Triglycerides 273 H Cholesterol 163 Total LDL Cholesterol 102 H HDL Cholesterol 34 L Urine Color Urine Appearance Urine pH Ur Specific [place] Urine Protein Urine Glucose (UA) Urine Ketones Urine Blood Urine Nitrite Urine Bilirubin Urine Urobilinogen Ur Leukocyte Esterase Urine HCG, Qual 12/19/18 06:00 WBC RBC Hgb Hct MCV MCH MCHC RDW Plt Count MPV Absolute Neuts (auto) Neutrophils % Lymphocytes % Monocytes % Eosinophils % Basophils % Nucleated RBC % Sodium Potassium Chloride Carbon Dioxide Anion Gap BUN Creatinine Est GFR (CKD-EPI)AfAm Est GFR (CKD-EPI)NonAf Random Glucose Hemoglobin A1c % 4.8 Calcium Phosphorus Magnesium Total Bilirubin AST ALT Alkaline Phosphatase Total Protein Albumin Triglycerides Cholesterol Total LDL Cholesterol HDL Cholesterol Urine Color Urine Appearance Urine pH Ur Specific [place] Urine Protein Urine Glucose (UA) Urine Ketones Urine Blood Urine Nitrite Urine Bilirubin Urine Urobilinogen Ur Leukocyte Esterase Urine HCG, Qual HOSPITAL COURSE: 38F w/ h/o diplopia(first onset last year, resolved after 1mo w/o medical intervention) presenting with complaint of dizziness, double vision, w/ two episode of vomiting. Woke up with dizziness, sensation of room spinning. Went to work, had worsening dizziness, double vision, slurred speech. Went home early and was concerned enough to prompt ED visit. Upon ED, no FND; still had complaint of dizziness. Dizziness improved with zofran, reglan, ofirmev, meclizine. Continued with melizine upon discharge. CTH neg for intracranial path, showed Left maxillary sinus polyps/cysts. Neuro([facility]) consulted rec MRI. MRI brain neg. PT eval had pt walk 30ft w/ RW, unsteady w/o. Echo showing 55-60% w/o valvular abnorm. Carotid Duplex done, no stenosis. Pt stable for D/C w/ recommendation for outpt vestibular rehab. Date of Admission:12/19/18 Date of Discharge: 12/19/18 Minutes to complete discharge: 20 Discharge Summary Problems reviewed: Yes Reason For Visit: DIZZINESS Current Active Problems Dizziness (Acute) Condition: Stable - Instructions Diet, Activity, Other Instructions: You were evaluated in the hospital for dizziness with associated headache. Imaging of the head showed possible polyps of the Left maxillary sinus. MRI of the brain was negative for a stroke. Echocardiogram shows normal cardiac functioning. The carotid ultrasound was unremarkable. Your symptoms improved with medications. Physical therapy thought that a walker would help with your balance Medications: - NEW medications: --Meclizine[ANTIVERT] 25mg, take every 8hours as needed for dizziness Follow-up with the physicians below: - PCP: to discuss your hospitalization, possible maxillary sinus polyps - Neurologist(your own neurologist or Dr Cardona): to discuss your double vision - Discuss with your PCP for outpatient referral to ENT and outpatient vestibular physical therapy if recurrent symptoms. INSTRUCTIONS: Maintain adequate hydration Avoid sudden changes in position Please give your self enough time to stand up from sitting position Please seek immediate medical evaluation or go to the Emergency Department if you experience: - severe unresolving headaches, severe weakness, inability to walk - unresolving nausea, vomiting - headache with a fever Referrals: Sukhi Cardona MD [Staff Physician] - Disposition: HOME - Home Medications Comprehensive Discharge Medication List: Ambulatory Orders Meclizine HCl [Antivert -] 25 mg PO TID PRN #12 tablet 12/19/18 Walker [Ultra-Light Rollator] 1 each ASDIR #1 each 12/19/18 This patient is new to me today: No Emergency Visit: No Critical Care patient: No - Discharge Referral Referred to [facility] No ATTENDING PHYSICIAN STATEMENT I saw and evaluated the patient. I reviewed the resident's note and discussed the case with the resident. I agree with the resident's findings and plan as documented. SUBJECTIVE: OBJECTIVE: ASSESSMENT AND PLAN:
[2018-12-19 19:09] VITALS: BP 120/78; PULSE 73; TEMP 97.7
== END 2018-12-19 19:25 | disposition home or self-care (01) ==
LOC: JER 17:28 → UNDOADMOB 20:53 → JERBED 20:53 → INTOOBSV 20:53 → JERBED 12-19 05:22 → J4S 12-19 05:22 → JERBED 12-19 10:54 → J4S 12-19 10:54
PROVIDERS: ADMIT Internal Medicine; ATTEND Hospitalist
PROC: 3E033NZ Introduction of Analgesics, Hypnotics, Sedatives into Peripheral Vein, Percutaneous Approach (ICD-10-PCS; principal; 2018-12-19)
PROC: 3E0337Z Introduction of Electrolytic and Water Balance Substance into Peripheral Vein, Percutaneous Approach (ICD-10-PCS; 2018-12-19)
PROC: 3E033GC Introduction of Other Therapeutic Substance into Peripheral Vein, Percutaneous Approach (ICD-10-PCS; 2018-12-19)
DX: R42 Dizziness and giddiness (principal); H53.2 Diplopia; R51 Headache; E78.5 Hyperlipidemia, unspecified; E66.9 Obesity, unspecified; Z68.36 Body mass index [BMI] 36.0-36.9, adult
CPT/HCPCS: 36415; 70450-TC; 70551-TC; 80053; 80061; 81003; 83036; 83721; 83735; 84100; 84703; 85025; 87086; 93005; 93010; 93306-TC; 93880-TC; 97116-GP; 97162-GP; 99285-25; G0378; J0131; J7030